=== PATIENT | female | born 1965 | race Hispanic/Latino ===

== ENCOUNTER 2020-09-13 13:06 | Inpatient (IN) | payer OTHER ==
--- OUTSIDE RECORDS SUMMARY | 2020-09-13 15:40 | XMS REPORT | Continuity of Care Document ---
:1965 Author Organization [facility] t Address [address] [place] [address] Care Team Providers Name Role Phone NO Primary Care Physician Unavailable Teresa SERRANO Attending Clinician Unavailable Korina Attending Clinician Problems Condition Condition Condition Status Onset Resolution Last Treating Co mments Source Name Details Category Date Date Treatment Clinician Date R22.1 - Diagnosis Active 2017-08-14 Me moria LOCALIZED 2-09 15:38:00 l SWELLING, R22.1 - 00:01: Herm maxwell MASS AND L LOCALIZED 00 SWELLING, MASS AND L Active 08/03/2017 [facility] [place] Z12.31 - Diagnosis Active 2015-062016-08-13 M emoria ENCNTR 2-14 15:43:00 l SCREEN Z12.31 - 00:01: Lizandro n MAMMOGRAM ENCNTR 00 FOR MA SCREEN MAMMOGRAM FOR MA Active 06/07/2016 [facility] [place] Pneumonia Problem Active [facility] due to [facility] - severe Patient acute s respirator Medica l y syndrome Center coronaviru s 2 (SARS-CoV- 2) Hypoxia Problem Active [facility] - Patient [facility] Generalize Problem 2017-11-20 M emoria d 12:45:51 l abdominal [place] pain Generalize d abdominal pain 8 MH [facility] [place] Tinea Problem 2017-11-20 Memor ia imbricata 12:45:51 l Tinea [place] imbricata 11/20/2017 MH [facility] [place] Unspecifie Problem 2017-11-20 M emoria d ovarian 12:45:51 l cyst, left Lizandro n side Unspecifie d ovarian cyst, left side 8 [facility] [place] Prediabete Problem 2017-11-20 M emoria s 12:45:51 l Ronnie Prediabete s 11/20/2017 MH [facility] [place] History of Past Illness Condition Condition Condition Status Onset Resolution Last Treating Co mments Source Name Details Category Date Date Treatment Clinician Date Right Problem 2017-2017-11-20 2017-11-20 M emoria lower 2-24 12:45:51 12:45:51 l quadrant Right 05:42: Ronnie pain lower 27 quadrant pain 08/18/2017 11/20/2017 [facility] [place] Allergies, Adverse Reactions, Alerts This patient has no known allergies or adverse reactions. Social History Social Habit Start Date Stop Date Quantity Comments Source Social History 2017-08-15 2017-08-15 [facility] 05:59:00 05:59:00 Sex Assigned At 1965 [address] [facility] 00:00:00 00:00:00 Patients [facility] Medications This patient has no known medications. Vital Signs Vital Name Observation Time Observation Value Comments Source Oxygen saturation by 2020-09-13 14:10:00 100 /min [facility] - Pulse oximetry Patients [facility] Oxygen saturation by 2020-09-13 12:40:00 100 /min [facility] - Pulse oximetry Patients [facility] Oxygen saturation by 2020-09-13 11:31:00 100 /min [facility] - Pulse oximetry Patients [facility] Oxygen saturation by 2020-09-13 09:52:00 100 /min [facility] - Pulse oximetry Patients [facility] Oxygen saturation by 2020-09-13 08:45:00 99 /min [facility] - Pulse oximetry Patients [facility] Oxygen saturation by 2020-09-13 08:17:00 98 /min [facility] - Pulse oximetry Patients [facility] Oxygen saturation by 2020-09-13 07:58:00 84 /min [facility] - Pulse oximetry Patients [facility] Procedures This patient has no known procedures. Encounters Start End Encounter Admission Attending Care Care Encounter Source Date/Time Date/Time Type Type Clinicians Facility Department ID 2020-09-13 2020-09-13 Departed 1 SWEET, [facility] [id number] [facility] 08:17:00 14:31:00 Emergency [facility] Patients 95 Lakisha es - Room Med Center [facility] 2017-08-14 2017-08-14 Outpatient Korina [facility] [id number] 15:30:00 23:59:00 Yadira 05 2014-10-02 2014-10-02 Outpatient Korina [facility] [id number] 14:23:00 23:59:00 Yadira Results Test Description Test Time Test Comments Results Result Comments Source Prothrombin time (PT) in platelet poor plasma by coagu lation 2020-09-13 09:00:00 assay Test Item Value Reference Range Interpretation Comme nts Prothrombin Time (test code = 5902-2) 13.3 11.9-14.5 [facility] by Coagulation [id number] 09:00:00 Test Item Value Reference Range Interpretation Comments Prothromb Time International Ratio 0.96 (test code = 6301-6) [facility]Act[facility] partial thromboplastin time (aPTT) in platelet poor plasma by coagulation [id number] 09:00:00 Test Item Value Reference Range Interpretation Comments Activated Partial Thromboplast Time 31.5 23.8-35.5 (test code = 49070-3) [facility] sodium measurement (moles/volume)2020-09-13 09:00:00 Test Item Value Reference Range Interpretation Comments Sodium Level (test code = 2951-2) 138 136-145 [facility] plasma potassium measurement (moles/volume)2020-09-13 09:00:00 Test Item Value Reference Range Interpretation Comments Potassium Level (test code = 2823-3) 3.6 3.5-5.1 [facility] plasma chloride measurement (moles/volume)2020-09-13 09:00:00 Test Item Value Reference Range Interpretation Comments Chloride Level (test code = 2075-0) 101 98-107 [facility] plasma carbon dioxide, total measurement (moles/volume)2020-09-13 09:00:00 Test Item Value Reference Range Interpretation Comments Carbon Dioxide Level (test code = 8-9) [facility] plasma anion [id number] 09:00:00 Test Item Value Reference Range Interpretation Comments Anion Gap (test code = 39011-0) 14.6 8-16 [facility] plasma urea nitrogen measurement (mass/volume)2020-09-13 09:00:00 Test Item Value Reference Range Interpretation Comments Blood Urea Nitrogen (test code = 01-17 3094-0) [facility] plasma creatinine measurement (mass/volume)2020-09-13 09:00:00 Test Item Value Reference Range Interpretation Comments Creatinine (test code = 2160-0) 0.68 0.57-1.11 [facility] plasma urea nitrogen/creatinine mass [id number] 09:00:00 Test Item Value Reference Range Interpretation Comments BUN/Creatinine Ratio (test code = 12-17 3097-3) [facility]Estimated glomerular filtration rate (GFR) [id number] 09:00:00 Test Item Value Reference Range Interpretation Comments Estimat Glomerular > 60 See_Comment [Automat ed message] The Filtration Rate (test system which generated code = 676064021) this resul t transmitted reference range : 60-. The reference r devin was not used to int erpret this result as normal/abnormal . [facility] HospitalGlucose [id number] 09:00:00 Test Item Value Reference Range Interpretation Comments Glucose Level (test code = LOX1718) 116 74-118 [facility] plasma calcium measurement (mass/volume)2020-09-13 09:00:00 Test Item Value Reference Range Interpretation Comments Calcium Level (test code = 32739-8) 8.2 8.4-10.2 [facility] plasma magnesium measurement (mass/volume)2020-09-13 09:00:00 Test Item Value Reference Range Interpretation Comments Magnesium Level (test code = 87640-4) 2.3 1.3-2.1 [facility] plasma total bilirubin measurement (mass/volume)2020-09-13 09:00:00 Test Item Value Reference Range Interpretation Comments Total Bilirubin (test code = 1975-2) 0.5 0.2-1.2 [facility] HospitalFluoroscopic procedure less than one hour [id number] 09:00:00 Test Item Value Reference Range Interpretation Comments Aspartate Amino Transf (AST/SGOT) (test 108 5-34 code = Aspartate Amino Transf (AST/SGOT)) [facility] or plasma alanine aminotransferase measurement (enzymatic activity/volume)2020-09-13 09:00:00 Test Item Value Reference Range Interpretation Comments Alanine Aminotransferase (ALT/SGPT) 66 0-55 (test code = 1742-6) [facility] plasma protein measurement (mass/volume)2020-09-13 09:00:00 Test Item Value Reference Range Interpretation Comments Total Protein (test code = 2885-2) 7.9 6.5-8.1 [facility] plasma albumin measurement (mass/volume)2020-09-13 09:00:00 Test Item Value Reference Range Interpretation Comments Albumin (test code = 1751-7) 3.4 3.5-5.0 [facility]Plasma globulin measurement (mass/volume) 2020-09-13 09:00:00 Test Item Value Reference Range Interpretation Comments Globulin (test code = 32330-4) 4.5 2.3-3.5 [facility] plasma albumin/globulin mass [id number] 09:00:00 Test Item Value Reference Range Interpretation Comments Albumin/Globulin Ratio (test code = 0.8 0.8-2.0 1759-0) [facility] plasma alkaline phosphatase measurement (enzymatic activity/volume)2020-09-13 09:00:00 Test Item Value Reference Range Interpretation Comments Alkaline Phosphatase (test code = 79 40-150 6768-6) [facility] or plasma creatine kinase measurement (enzymatic activity/volume)2020-09-13 09:00:00 Test Item Value Reference Range Interpretation Comments Creatine Kinase (test code = 2157-6) 027 19-492 [facility]er[facility] or plasma creatine kinase MB measurement (mass/volume)2020-09-13 09:00:00 Test Item Value Reference Range Interpretation Comments Creatine Kinase MB (test code = 2.60 0-5.0 25687-1) [facility] HospitalTroponin I measurement by highly sensitive enzyme [id number] 09:00:00 Test Item Value Reference Range Interpretation Comments Troponin I (test code = 56759-6) 0.020 0-0.300 [facility] HospitalCHEST SINGLE (PORTABLE)2020-09-13 08:47:00[facility] 1965 Sex: [place] [address] Patient Name: MERE ROCK MR #: [id number] : 1965 Age/Sex: 55/F Req #: [id number] Adm Physician: Ordered by: CHARLEEN SERRANO MD Report #: [id number] Location: Room/Bed: Procedure: 3609-3251 DX/CHEST SINGLE (PORTABLE) Exam Date: 09/13/20 Exam Time: 0828 REPORT STATUS: Signed EXAMINATION: CHEST SINGLE (PORTABLE) INDICATION: Viral pneumonia, shortness of breath COMPARISON: None FINDINGS: LINES/TUBES:None LUNGS:Low lung volumes. Multifocal left greater than right patchy opacities. PLEURA:No pleural effusion or pneumothorax. MEDIASTINUM:The cardiomediastinal silhouette appears normal in size and shape. BONES/SOFT TISSUES:No acute osseous injury. ABDOMEN:No free air under the diaphragm. IMPRESSION: Low lung volumes and left greater than right bilateral patchy opacities consistent with provided history of viral pneumonia. Signed by: Cheryl Almendarez MD on 09/13/2020 8:48 AM Dictated By: CHERYL ALMENDAREZ MD 7 COPY TO: CHARLEEN SERRANO MD Automated blood segmented neutrophil count as percentage of total leukocytes 2020-09-13 08:07:00 Test Item Value Reference Range Interpretation Comments Neutrophils (%) (Auto) (test code = 78.1 38.7-80.0 18298-0) [facility] HospitalAutomated blood lymphocyte count as percentage ot total [id number] 08:07:00 Test Item Value Reference Range Interpretation Comments Lymphocytes (%) (Auto) (test code = 13.0 18.0-39.1 736-9) [facility] HospitalAutomated blood monocyte count as percentage of total gifndaiynn4554-28-85 08:07:00 Test Item Value Reference Range Interpretation Comments Monocytes (%) (Auto) (test code = 7.7 4.4-11.3 5905-5) [facility] HospitalAutomated blood eosinophil count as percentage of total xruaoxaqah8943-01-32 08:07:00 Test Item Value Reference Range Interpretation Comments Eosinophils (%) (Auto) (test code = 0.2 0.0-6.0 713-8) [facility] HospitalAutomated blood basophil count as percentage of total xoggqohoeu9910-71-70 08:07:00 Test Item Value Reference Range Interpretation Comments Basophils (%) (Auto) (test code = 0.3 0.0-1.0 706-2) [facility] HospitalFluoroscopic procedure less than one hour [id number] 08:07:00 Test Item Value Reference Range Interpretation Comments IM GRANULOCYTES % (test code = IM 0.7 0.0-1.0 GRANULOCYTES %) [facility] HospitalAutomated blood neutrophil count 2020-09-13 08:07:00 Test Item Value Reference Range Interpretation Comments Neutrophils # (Auto) (test code = 4.7 2.1-6.9 751-8) [facility] HospitalBlood lymphocytes count (number/volume) 2020-09-13 08:07:00 Test Item Value Reference Range Interpretation Comments Lymphocytes # (Auto) (test code = 0.8 1.0-3.2 78447-9) [facility] HospitalBlood monocytes automated count (number/volume)2020-09-13 08:07:00 Test Item Value Reference Range Interpretation Comments Monocytes # (Auto) (test code = 742-7) 0.5 0.2-0.8 [facility] HospitalAutomated blood eosinophil count 2020-09-13 08:07:00 Test Item Value Reference Range Interpretation Comments Eosinophils # (Auto) (test code = 0.0 0.0-0.4 711-2) [facility] HospitalAutomated blood basophil count (count/volume)2020-09-13 08:07:00 Test Item Value Reference Range Interpretation Comments Basophils # (Auto) (test code = 704-7) 0.0 0.0-0.1 [facility] HospitalFluoroscopic procedure less than one hour [id number] 08:07:00 Test Item Value Reference Range Interpretation Comments Absolute Immature Granulocyte (auto 0.04 0-0.1 (test code = Absolute Immature Granulocyte (auto) [facility] HospitalBlood platelets count by estimate (number/volume)2020-09-13 08:07:00 Test Item Value Reference Range Interpretation Comments Platelet Estimate (test code = ADEQUATE 60330-4) [facility] HospitalPlatelet [id number] 08:07:00 Test Item Value Reference Range Interpretation Comments Platelet Morphology Comment (test code NORMAL = 39576-1) [facility] HospitalAutomated blood hematocrit (volume fraction)2020-09-13 08:07:00 Test Item Value Reference Range Interpretation Comments Hematocrit (test code = 4544-3) 40.8 34.2-44.1 [facility] HospitalBNP [id number] 08:07:00 Test Item Value Reference Range Interpretation Comments B-Type Natriuretic Peptide (test code < 10.0 0-100 = 56422-7) [facility] HospitalAutomated erythrocyte mean corpuscular [id number] 08:07:00 Test Item Value Reference Range Interpretation Comments Mean Corpuscular Volume (test code = 86.8 81-99 787-2) [facility] HospitalFluoroscopic procedure less than one hour fyglqepo3234-56-15 08:07:00 Test Item Value Reference Range Interpretation Comments Coronavirus (PCR) (test code = DETECTED NOTDETECTED Coronavirus (PCR)) [facility] HospitalBlood leukocytes automated count (number/volume)2020-09-13 08:07:00 Test Item Value Reference Range Interpretation Comments White Blood Count (test code = 6690-2) 6.00 4.8-10.8 [facility] erythrocytes automated count (number/volume)2020-09-13 08:07:00 Test Item Value Reference Range Interpretation Comments Red Blood Count (test code = 789-8) 4.70 3.6-5.1 [facility] HospitalBlood hemoglobin measurement (moles/volume)2020-09-13 08:07:00 Test Item Value Reference Range Interpretation Comments Hemoglobin (test code = 36720-6) 13.9 12.0-16.0 [facility] HospitalAutomated erythrocyte mean corpuscular hemoglobin (mass per erythrocyte)2020-09-13 08:07:00 Test Item Value Reference Range Interpretation Comments Mean Corpuscular Hemoglobin (test code 29.6 28-32 = 785-6) [facility] HospitalAutomated erythrocyte mean corpuscular hemoglobin concentration measurement (mass/volume)2020-09-13 08:07:00 Test Item Value Reference Range Interpretation Comments Mean Corpuscular Hemoglobin Concent 34.1 31-35 (test code = 786-4) [facility] HospitalRDW YasCx-[id number] 08:07:00 Test Item Value Reference Range Interpretation Comments Red Cell Distribution Width (test code 13.3 11.7-14.4 = 90673-6) [facility] HospitalAutomated blood platelet count (count/volume)2020-09-13 08:07:00 Test Item Value Reference Range Interpretation Comments Platelet Count (test code = 777-3) 154 140-360 [facility]
[2020-09-13 15:54] VITALS: BMI 40.4
[2020-09-13] MEDS ORDERED: IPRATROPIUM BROM 0.5MG/2.5ML NEB PRN (16:07)
[2020-09-13] MEDS ORDERED: ONDANSETRON 4 MG/2 ML VIAL IV PRN (16:07)
[2020-09-13] MEDS ORDERED: ALBUTEROL 2.5 MG/3 ML NEB SOL NEB PRN (16:07)
[2020-09-13] MEDS: AZITHROMYCIN IV 500 MG in NA CHLORIDE 0.9% 250 ML IVPB SCH (20:28)
[2020-09-13] MEDS: APIXABAN 5 MG TABLET PO SCH (20:29)
[2020-09-13] MEDS: FAMOTIDINE 20 MG/2 ML VIAL IV SCH (20:29)
[2020-09-13] MEDS: METHYLPREDNISOLONE 40 MG INJ IV SCH (20:30)
[2020-09-13] MEDS: CEFTRIAXONE/SWI 1gm 1 GM/10 ML SYR IVP SCH (20:30)
[2020-09-14 04:25] LABS: Absolute Lymphocytes (CBC) 0.5 K/uL (0.7-4.9); Basophils % 0.4 % (0-1.3); Hematocrit 38.4 % (36.0-45.0); Lymphocytes % 13.2 % (15.3-44.8); MPV 10.6 fL (7.6-11.3); RBC Red Blood Cell Count 4.39 M/uL (3.86-4.86)
[2020-09-14 04:38] LABS: ALT/SGPT 63 U/L (12-78); AST/SGOT 78 U/L (15-37); Albumin 2.7 g/dL (3.4-5.0); Alkaline Phosphatase 73 U/L (45-117); BUN Blood Urea Nitrogen 11 mg/dL (7-18); Bicarbonate 27 mmol/L (21-32); Bilirubin Total 0.4 mg/dL (0.2-1.0); Ferritin 752.4 ng/mL (8-388); Glucose Level 147 mg/dL (74-106); HDL Cholesterol 34 mg/dL (40-60); LDL Cholesterol, Calculated 30 (<130); Magnesium 2.7 mg/dL (1.8-2.4); NT PRO-BNP 51 pg/mL (<125); Phosphorus 3.1 mg/dL (2.5-4.9); Potassium 4.1 mmol/L (3.5-5.1); Sodium Level 141 mmol/L (136-145)
[2020-09-14] MEDS: AZITHROMYCIN IV 500 MG in NA CHLORIDE 0.9% 250 ML IVPB SCH (07:41)
[2020-09-14] MEDS: FAMOTIDINE 20 MG/2 ML VIAL IV SCH ×2 (07:41→21:35)
[2020-09-14] MEDS: APIXABAN 5 MG TABLET PO SCH ×2 (07:42→21:36)
[2020-09-14] MEDS: METHYLPREDNISOLONE 40 MG INJ IV SCH (07:42)
[2020-09-14] MEDS: CEFTRIAXONE/SWI 1gm 1 GM/10 ML SYR IVP SCH ×2 (07:43→21:34)
[2020-09-14] MEDS ORDERED: ENOXAPARIN 40 MG/0.4 ML SQ SCH (09:00)
--- NOTE | 2020-09-14 10:03 | P.HP ---
Certification for Inpatient Patient admitted to: Inpatient With expected LOS: >2 Midnights Patient will require the following post-hospital care: None Practitioner: I am a practitioner with admitting privileges, knowledge of patient current condition, hospital course, and medical plan of care. Services: Services provided to patient in accordance with Admission requirements found in Title 42 Section 412.3 of the Code of Federal Regulations Patient History Date of Service: 09/13/20 Reason for admission: COVID-19 pneumonia History of Present Illness: Patient is a 55-year-old female who came to the hospital from [place], [place]. They did not have any COVID beds so arrangements were made to transfer patient to our facility. Patient was hypoxic requiring 4 L of oxygen. Patient has multiple comorbidities including morbid obesity and dyslipidemia. She has been told she is prediabetic and she is has some blood pressure issues as well. At this time she will be admitted to our hospital for further evaluation. I did talk to her about the use of Remdesivir as well as plasma. She is will willing to except both. Will go ahead and get orders started-await for approval by the committee at [facility] that approves these medications. Allergies No Known Allergies Allergy (Unverified 09/13/20 15:53) Home Medications: Ibuprofen 1 tab PO TID PRN 09/13/20 - Past Medical/Surgical History Has patient received pneumonia vaccine in the past: No Diabetic: No -: hyperlipidemia -: left foot surgery - pins -: cholecystectomy -: section x 3 -: left shoulder rotator cuff surgery - Family History Father Medical History: Cancer Notes: liver cirrhosis Mother Medical History: Diabetes - Social History Smoking Status: Never smoker Alcohol use: No CD- Drugs: No Caffeine use: Yes Place of Residence: Home Review of Systems 10-point ROS is otherwise unremarkable Physical Examination - Vital Signs Temperature: 98.1 F Blood Pressure: 111/66 Pulse: 78 Respirations: 22 Pulse Ox (%): 90 - Physical Exam General: Alert, In no apparent distress, Oriented x3 HEENT: Atraumatic, PERRLA, Mucous membr. moist/pink, EOMI, Sclerae nonicteric Neck: Supple, 2+ carotid pulse no bruit, No LAD, Without JVD or thyroid abnormality Respiratory: Diminished, Rhonchi/gurgles Cardiovascular: Regular rate/rhythm, Normal S1 S2 Gastrointestinal: Normal bowel sounds, No tenderness Musculoskeletal: No tenderness Integumentary: No rashes Neurological: Normal gait, Normal speech, Normal strength at 5/5 x4 extr, Normal tone, Normal affect Lymphatics: No axilla or inguinal lymphadenopathy - Studies Laboratory Data (last 24 hrs) 09/14/20 03:27: Sodium 141, Potassium 4.1, BUN 11, Creatinine 0.44 L, Glucose 147 H, Phosphorus 3.1, Magnesium 2.7 H, Total Bilirubin 0.4, AST 78 H, ALT 63, Alkaline Phosphatase 73, Triglycerides 70, Cholesterol 78, HDL Cholesterol 34 L, Cholesterol/HDL Ratio 2.29 09/14/20 03:27: WBC 3.70 L, Hgb 12.9, Hct 38.4, Plt Count 161 Assessment & Plan - Problems (Diagnosis) (1) Pneumonia due to COVID-19 virus Current Visit: Yes Status: Acute - Plan 1. Continue with IV steroids 2. Remdesivir & plasma 3. Repeat chest x-ray is symptoms are progressively worsening 4. O2 per protocol 5. Pulmonary consultation 6. Continue with albuterol inhaler therapy; zinc and vitamin-C 7. O2 per protocol 8. Monitor LFTs 9. Repeat labs including ferritin and CRP 10. GI and DVT prophylaxis Discharge Plan: Home Plan to discharge in: Greater than 2 days - Advance Directives Does patient have a Living Will: No Does patient have a Durable POA for Healthcare: No - Code Status/Comfort Care Code Status Assessed: Yes Code Status: Full Code Critical Care: No Time Spent Managing PTS Care (In Minutes): 45
--- NOTE | 2020-09-14 12:51 | P.CNS ---
Date of Consult: 09/14/20 Reason for Consult: Respiratory failure from walls virus Chief Complaint: COVID-19 pneumonia History of Present Illness: Patient is 55 years of age was in os [facility] and diagnosed with walls virus transferred here she is doing better currently nasal cannula oxygen still complaining of shortness of breath Labs reviewed Allergies No Known Allergies Allergy (Unverified 09/13/20 15:53) Home Medications: Ibuprofen 1 tab PO TID PRN 09/13/20 - Past Medical/Surgical History Diabetic: No -: hyperlipidemia -: left foot surgery - pins -: cholecystectomy -: section x 3 -: left shoulder rotator cuff surgery - Family History Father Medical History: Cancer Notes: liver cirrhosis Mother Medical History: Diabetes - Social History Alcohol use: No CD- Drugs: No Caffeine use: Yes Place of Residence: Home Review of Systems General: Weakness Respiratory: Shortness of Breath Physical Examination Temp Pulse Resp BP Pulse Ox 98.1 F 78 22 H 111/66 90 L 09/14/20 10:03 09/14/20 10:03 09/14/20 10:03 09/14/20 10:03 09/14/20 10:03 General: Other (Deferred due to walls virus) Laboratory Data (last 24 hrs) 09/14/20 03:27: Sodium 141, Potassium 4.1, BUN 11, Creatinine 0.44 L, Glucose 147 H, Phosphorus 3.1, Magnesium 2.7 H, Total Bilirubin 0.4, AST 78 H, ALT 63, Alkaline Phosphatase 73, Triglycerides 70, Cholesterol 78, HDL Cholesterol 34 L, Cholesterol/HDL Ratio 2.29 09/14/20 03:27: WBC 3.70 L, Hgb 12.9, Hct 38.4, Plt Count 161 - Problems (1) Pneumonia due to COVID-19 virus Current Visit: Yes Status: Acute Plan: Patient is 55 years of age admitted with pneumonia due to walls virus she is currently requiring 5 6 L of oxygen to maintain a sat around 90 Dc Zithromax continue with IV Rocephin ordered a chest x-ray blood pressure stable continue to monitor
[2020-09-14] MEDS ORDERED: Remdesivir 200 MG in NA CHLORIDE 0.9% 250 ML IV ONE (14:00)
[2020-09-14] MEDS ORDERED: NA CHLORIDE 0.9% 250 ML ONE (14:58)
[2020-09-14] MEDS: METHYLPREDNISOLONE 125 MG INJ IV SCH (21:34)
[2020-09-15 04:24] LABS: Albumin 2.8 g/dL (3.4-5.0); Bilirubin Direct 0.1 mg/dL (0-0.2); Bilirubin Total 0.3 mg/dL (0.2-1.0)
[2020-09-15] MEDS: CEFTRIAXONE/SWI 1gm 1 GM/10 ML SYR IVP SCH (07:38)
[2020-09-15] MEDS: FAMOTIDINE 20 MG/2 ML VIAL IV SCH ×2 (07:39→21:02)
[2020-09-15] MEDS: ACETAMINOPHEN 500 MG TAB PO PRN (07:39)
[2020-09-15] MEDS: METHYLPREDNISOLONE 125 MG INJ IV SCH ×2 (07:39→21:02)
[2020-09-15] MEDS: APIXABAN 5 MG TABLET PO SCH ×2 (07:40→21:02)
--- NOTE | 2020-09-15 08:28 | RAD REPORT ---
EXAM DESCRIPTION: Jeanine Single View09/15/2020 5:29 am CLINICAL HISTORY: Cough COMPARISON: none FINDINGS: Moderate to marked bilateral pulmonary opacities. Heart is normal size IMPRESSION: Moderate to marked bilateral pulmonary opacities probably pneumonia
[2020-09-15] MEDS: Remdesivir 100 MG in NA CHLORIDE 0.9% 250 ML IV SCH (09:23)
--- NOTE | 2020-09-15 10:10 | P.PN ---
Subjective Date of Service: 09/14/20 Oxygen requirements has slowly worsened. Patient states she feels better however. Will need to continue with current treatment. Review of Systems 10-point ROS is otherwise unremarkable Physical Examination - Vital Signs Temperature: 97 F Blood Pressure: 121/72 Pulse: 59 Respirations: 24 Pulse Ox (%): 91 - Physical Exam General: Alert, In no apparent distress, Oriented x3 HEENT: Atraumatic, PERRLA, EOMI Neck: Supple, JVD not distended Respiratory: Diminished Cardiovascular: Regular rate/rhythm, Normal S1 S2 Gastrointestinal: Normal bowel sounds, No tenderness Musculoskeletal: No tenderness Integumentary: No rashes Neurological: Normal speech, Normal tone, Normal affect Lymphatics: No axilla or inguinal lymphadenopathy - Studies Laboratory Data (last 24 hrs) 09/15/20 03:35: Total Bilirubin 0.3, AST 66 H, ALT 66, Alkaline Phosphatase 71 Medications List Reviewed: Yes Assessment & Plan - Problems (Diagnosis) (1) Pneumonia due to COVID-19 virus Current Visit: Yes Status: Acute - Plan 1. Continue with IV steroids 2. Remdesivir & plasma; plasma given and Remdesivir is day 3. 3. Repeat chest x-ray in the morning 4. O2 per protocol 5. Pulmonary consultation appreciated 6. Continue with albuterol inhaler therapy; supportive care 7. Monitor LFTs 8. Repeat labs including ferritin and CRP 9. GI and DVT prophylaxis Discharge Plan: Home Plan to discharge in: Greater than 2 days - Advance Directives Does patient have a Living Will: No Does patient have a Durable POA for Healthcare: No - Code Status/Comfort Care Code Status: Full Code Critical Care: No Time Spent Managing PTS Care (In Minutes): 35
--- NOTE | 2020-09-15 10:11 | P.PN ---
Date of Service: 09/15/20 Subjective Oxygen requirements has slowly worsened. Patient states she feels better however. Will need to continue with current treatment. Review of Systems 10-point ROS is otherwise unremarkable Physical Examination - Vital Signs reviewed - Physical Exam General: Alert, In no apparent distress, Oriented x3 Respiratory: Diminished Cardiovascular: Regular rate/rhythm, Normal S1 S2 Gastrointestinal: Normal bowel sounds, No tenderness Musculoskeletal: No tenderness Neurological: Normal speech, Normal tone, Normal affect Assessment & Plan - Problems (Diagnosis) (1) Pneumonia due to COVID-19 virus Current Visit: Yes Status: Acute - Plan 1. Continue with IV steroids 2. Remdesivir & plasma; plasma given and Remdesivir is day 3. 3. Repeat chest x-ray in the morning 4. O2 per protocol 5. Pulmonary consultation appreciated 6. Continue with albuterol inhaler therapy; supportive care 7. Monitor LFTs 8. Repeat labs including ferritin and CRP 9. GI and DVT prophylaxis Discharge Plan: Home Plan to discharge in: Greater than 2 days
--- NOTE | 2020-09-15 12:46 | P.PN ---
Subjective Date of Service: 09/15/20 Chief Complaint: COVID-19 pneumonia Subjective: Improving (Patient is improving feeling better still requiring high flow nasal cannula oxygen) Review of Systems General: Weakness Respiratory: Shortness of Breath Physical Examination - Vital Signs Temperature: 96.9 F Blood Pressure: 110/55 Pulse: 59 Respirations: 28 Pulse Ox (%): 90 - Studies Laboratory Data (last 24 hrs) 09/15/20 03:35: Total Bilirubin 0.3, AST 66 H, ALT 66, Alkaline Phosphatase 71 Medications List Reviewed: Yes Assessment & Plan - Problems (Diagnosis) (1) Pneumonia due to COVID-19 virus Current Visit: Yes Status: Acute Plan: Doing better continue to monitor titrate O2 down to a sat of 90% patient is on high flow nasal cannula oxygen continue to wean she is feeling better blood pressure is stable labs reviewed DC antibiotics no evidence of sepsis
[2020-09-15] MEDS: IVERMECTIN 3 MG TABLET PO SCH (13:59)
[2020-09-16 04:22] LABS: Absolute Lymphocytes (CBC) 0.7 K/uL (0.7-4.9); Basophils % 0.2 % (0-1.3); Hematocrit 37.8 % (36.0-45.0); MPV 10.2 fL (7.6-11.3); RBC Red Blood Cell Count 4.32 M/uL (3.86-4.86)
[2020-09-16 05:33] LABS: ALT/SGPT 74 U/L (12-78); AST/SGOT 55 U/L (15-37); Albumin 2.8 g/dL (3.4-5.0); Alkaline Phosphatase 74 U/L (45-117); BUN Blood Urea Nitrogen 16 mg/dL (7-18); Bicarbonate 29 mmol/L (21-32); Bilirubin Direct 0.1 mg/dL (0-0.2); Bilirubin Total 0.3 mg/dL (0.2-1.0); Ferritin 474.1 ng/mL (8-388); Glucose Level 139 mg/dL (74-106); Magnesium 2.9 mg/dL (1.8-2.4); NT PRO-BNP 232 pg/mL (<125); Potassium 4.1 mmol/L (3.5-5.1); Protein, Total 6.9 g/dL (6.4-8.2); Sodium Level 144 mmol/L (136-145)
[2020-09-16 07:03] LABS: Blood Morphology Comment NOT SEEN (NOT SEEN); Platelet Estimate ADEQ
[2020-09-16] MEDS: APIXABAN 5 MG TABLET PO SCH ×2 (07:13→20:31)
[2020-09-16] MEDS: METHYLPREDNISOLONE 125 MG INJ IV SCH ×2 (07:13→20:30)
[2020-09-16] MEDS: FAMOTIDINE 20 MG/2 ML VIAL IV SCH ×2 (07:13→20:31)
[2020-09-16] MEDS: Remdesivir 100 MG in NA CHLORIDE 0.9% 250 ML IV SCH (09:47)
--- NOTE | 2020-09-16 13:17 | P.PN ---
Subjective Date of Service: 09/16/20 Chief Complaint: COVID-19 pneumonia Subjective: Improving (Patient feeling better although she has dyspnea on mild exertion including desat) Review of Systems General: Weakness Respiratory: Shortness of Breath Physical Examination - Vital Signs Temperature: 97 F Blood Pressure: 116/58 Pulse: 55 Respirations: 18 Pulse Ox (%): 91 - Studies Laboratory Data (last 24 hrs) 09/16/20 03:19: WBC 11.60 H D, Hgb 12.4, Hct 37.8, Plt Count 218 D 09/16/20 03:19: Sodium 144, Potassium 4.1, BUN 16, Creatinine 0.50 L, Glucose 139 H, Magnesium 2.9 H, Total Bilirubin 0.3, AST 55 H, ALT 74, Alkaline Phosphatase 74 Medications List Reviewed: Yes Assessment & Plan - Problems (Diagnosis) (1) Pneumonia due to COVID-19 virus Current Visit: Yes Status: Acute Plan: Patient is feeling better oxygenation stable at rest she has mild desaturation with minimal exertion continue titrate O2 down labs review vital signs stable Discharge Plan: Home Plan to discharge in: 48 Hours
[2020-09-16] MEDS: FLUCONAZOLE 200mg IVPB 200 MG/100 ML BAG IV SCH (18:25)
[2020-09-16] MEDS: ACETAMINOPHEN 500 MG TAB PO PRN (20:32)
[2020-09-16] MEDS: NYSTATIN 500,000 UNIT/5 ML UDC PO SCH (20:32)
[2020-09-17 04:14] LABS: Absolute Lymphocytes (CBC) 0.6 K/uL (0.7-4.9); Basophils % 0.2 % (0-1.3); Hematocrit 39.5 % (36.0-45.0); Lymphocytes % 5.5 % (15.3-44.8); MPV 9.8 fL (7.6-11.3); RBC Red Blood Cell Count 4.51 M/uL (3.86-4.86)
--- NOTE | 2020-09-17 05:34 | P.PN ---
Date of Service: 09/16/20 Subjective Patient continues to slowly improve. She was having some odynophagia and pain in the back of her throat. We did start some medication for thrush. Otherwise she has 2 more days of Remdesivir. Hopefully, we can discharge in Sunday a.m. after last dose of antiviral therapy completed Review of Systems 10-point ROS is otherwise unremarkable Physical Examination - Vital Signs reviewed - Physical Exam General: Alert, In no apparent distress, Oriented x3 Respiratory: Diminished Cardiovascular: Regular rate/rhythm, Normal S1 S2 Gastrointestinal: Normal bowel sounds, No tenderness Musculoskeletal: No tenderness Neurological: Normal speech, Normal tone, Normal affect Assessment & Plan - Problems (Diagnosis) (1) Pneumonia due to COVID-19 virus Current Visit: Yes Status: Acute (2) Thrush Current Visit: Yes Status: Acute - Plan 1. Continue with IV steroids 2. Remdesivir & plasma; plasma given and Remdesivir is day 3-last dose is Sunday morning. 3. Repeat chest x-ray as needed 4. O2 per protocol 5. Pulmonary consultation appreciated 6. Continue with albuterol inhaler therapy; supportive care 7. Monitor LFTs; Repeat labs including ferritin and CRP 8. Start Diflucan and nystatin 9. GI and DVT prophylaxis Discharge Plan: Home Plan to discharge in: Greater than 2 days
[2020-09-17 06:21] LABS: ALT/SGPT 97 U/L (12-78); AST/SGOT 70 U/L (15-37); Albumin 2.8 g/dL (3.4-5.0); Alkaline Phosphatase 73 U/L (45-117); BUN Blood Urea Nitrogen 17 mg/dL (7-18); Bicarbonate 28 mmol/L (21-32); Bilirubin Direct 0.2 mg/dL (0-0.2); Bilirubin Total 0.5 mg/dL (0.2-1.0); C-Reactive Protein 7.68 mg/L (<3.00); Ferritin 481.6 ng/mL (8-388); Glucose Level 142 mg/dL (74-106); Magnesium 2.8 mg/dL (1.8-2.4); Potassium 4.3 mmol/L (3.5-5.1); Protein, Total 6.8 g/dL (6.4-8.2); Sodium Level 143 mmol/L (136-145)
[2020-09-17] MEDS: NYSTATIN 500,000 UNIT/5 ML UDC PO SCH ×4 (07:16→20:17)
[2020-09-17] MEDS: APIXABAN 5 MG TABLET PO SCH ×2 (07:17→20:17)
[2020-09-17] MEDS: FAMOTIDINE 20 MG/2 ML VIAL IV SCH ×2 (07:17→20:17)
[2020-09-17] MEDS: METHYLPREDNISOLONE 125 MG INJ IV SCH ×2 (07:17→20:18)
[2020-09-17] MEDS: Remdesivir 100 MG in NA CHLORIDE 0.9% 250 ML IV SCH (09:16)
--- NOTE | 2020-09-17 09:24 | P.PN ---
Date of Service: 09/17/20 Subjective Patient continues to improve significantly. to complete dose of remdesivir in am. we will arrange supplemental oxygen at home prior to discharge. Review of Systems 10-point ROS is otherwise unremarkable Physical Examination - Vital Signs reviewed - Physical Exam General: Alert, In no apparent distress, Oriented x3 Respiratory: Diminished Cardiovascular: Regular rate/rhythm, Normal S1 S2 Gastrointestinal: Normal bowel sounds, No tenderness Musculoskeletal: No tenderness Neurological: Normal speech, Normal tone, Normal affect Assessment & Plan - Problems (Diagnosis) (1) Pneumonia due to COVID-19 virus Current Visit: Yes Status: Acute (2) Thrush Current Visit: Yes Status: Acute - Plan 1. Continue with IV steroid doses. 2. Remdesivir & plasma; plasma given and Remdesivir is day 4-last dose is Sunday morning (i.e tomorrow). 3. Repeat chest x-ray as needed 4. O2 per protocol 5. Pulmonary consultation appreciated 6. Continue with albuterol inhaler therapy and supportive care 7. continue Diflucan and nystatin 8. GI and DVT prophylaxis Discharge Plan: Home Plan to discharge in: Greater than 2 days
--- NOTE | 2020-09-17 12:14 | P.PN ---
Subjective Date of Service: 09/17/20 Chief Complaint: COVID-19 pneumonia Subjective: Improving (Patient is doing better still has some dyspnea and had desaturation on mild exertion) Review of Systems General: Weakness Respiratory: Shortness of Breath Physical Examination - Vital Signs Temperature: 97.2 F Blood Pressure: 125/64 Pulse: 51 Respirations: 16 Pulse Ox (%): 92 - Studies Laboratory Data (last 24 hrs) 09/17/20 03:50: WBC 11.40 H, Hgb 13.0, Hct 39.5, Plt Count 235 09/17/20 03:50: Sodium 143, Potassium 4.3, BUN 17, Creatinine 0.50 L, Glucose 142 H, Magnesium 2.8 H, Total Bilirubin 0.5, AST 70 H, ALT 97 H, Alkaline Phosphatase 73 Medications List Reviewed: Yes Assessment & Plan - Problems (Diagnosis) (1) Pneumonia due to COVID-19 virus Current Visit: Yes Status: Acute Plan: Patient is improving recommend discharge home tomorrow on prednisone 20 b.i.d. for a week and then 10 b.i.d. continue with full-dose anticoagulation and a oxygen
[2020-09-17] MEDS: IVERMECTIN 3 MG TABLET PO SCH (12:16)
[2020-09-17] MEDS: FLUCONAZOLE 200mg IVPB 200 MG/100 ML BAG IV SCH (16:53)
[2020-09-18 06:51] LABS: Absolute Lymphocytes (CBC) 0.8 K/uL (0.7-4.9); Basophils % 0.3 % (0-1.3); Hematocrit 39.8 % (36.0-45.0); Lymphocytes % 6.1 % (15.3-44.8); MPV 10.4 fL (7.6-11.3); RBC Red Blood Cell Count 4.54 M/uL (3.86-4.86)
[2020-09-18 08:06] LABS: ALT/SGPT 82 U/L (12-78); AST/SGOT 32 U/L (15-37); Albumin 2.8 g/dL (3.4-5.0); Alkaline Phosphatase 69 U/L (45-117); BUN Blood Urea Nitrogen 16 mg/dL (7-18); Bicarbonate 29 mmol/L (21-32); Bilirubin Direct 0.2 mg/dL (0-0.2); Bilirubin Total 0.5 mg/dL (0.2-1.0); C-Reactive Protein 4.57 mg/L (<3.00); Ferritin 402.8 ng/mL (8-388); Glucose Level 149 mg/dL (74-106); Magnesium 2.7 mg/dL (1.8-2.4); Potassium 4.5 mmol/L (3.5-5.1); Protein, Total 6.8 g/dL (6.4-8.2); Sodium Level 142 mmol/L (136-145)
[2020-09-18] MEDS: APIXABAN 5 MG TABLET PO SCH (09:00)
[2020-09-18] MEDS: NYSTATIN 500,000 UNIT/5 ML UDC PO SCH ×2 (09:00→13:00)
[2020-09-18] MEDS: METHYLPREDNISOLONE 125 MG INJ IV SCH (09:00)
[2020-09-18] MEDS: FAMOTIDINE 20 MG/2 ML VIAL IV SCH (09:00)
[2020-09-18 10:11] VITALS: O2SAT 93
[2020-09-18] MEDS: Remdesivir 100 MG in NA CHLORIDE 0.9% 250 ML IV SCH (10:56)
--- NOTE | 2020-09-18 12:24 | P.DS ---
Admission Date: 09/13/20 Discharge Date: 09/18/20 Disposition: ROUTINE DISCHARGE Discharge Condition: FAIR Reason for Admission: COVID-19 pneumonia - Problems (1) Acute respiratory disease due to COVID-19 virus Current Visit: Yes Status: Acute (2) Pneumonia due to COVID-19 virus Current Visit: Yes Status: Acute Brief History of Present Illness: Reason for admission: COVID-19 pneumonia History of Present Illness: Patient is a 55-year-old female who came to the hospital from [place], [place]. They did not have any COVID beds so arrangements were made to transfer patient to our facility. Patient was hypoxic requiring 4 L of oxygen. Patient has multiple comorbidities including morbid obesity and dyslipidemia. She has been told she is prediabetic and she is has some blood pressure issues as well. At this time she will be admitted to our hospital for further evaluation. I did talk to her about the use of Remdesivir as well as plasma. She is will willing to except both. Will go ahead and get orders started-await for approval by the committee at [facility] that approves these medications. Allergies Hospital Course: PATIENT WAS ADMITTED FOR COUGH WITH PNEUMONIA. She received covalescent plasma as well as Remdesivir. Her last dose was today. Her O2 need has been weaning down but requiring supplemental 2 L nasal cannula O2. She will be discharged home today with home O2. She will follow with Pulmonary who evaluated her inpatient-Dr. Bocanegra in the next 1 week Vital Signs/Physical Exam: Temp Pulse Resp BP Pulse Ox 97.7 F 55 24 H 128/64 94 09/18/20 08:00 09/18/20 08:00 09/18/20 08:00 09/18/20 08:00 09/18/20 08:00 General: Alert, In no apparent distress, Oriented x3, Cooperative, Other (still on NC 02 ) HEENT: Atraumatic, Normocephalic, PERRLA Neck: Supple, 2+ carotid pulse no bruit, JVD not distended Respiratory: Clear to auscultation bilaterally, Normal air movement Cardiovascular: No edema, Normal pulses, Regular rate/rhythm, Normal S1 S2 Gastrointestinal: Normal bowel sounds, Soft and benign, Non-distended Neurological: Normal gait, Normal strength at 5/5 x4 extr, Sensation intact Laboratory Data at Discharge: WBC 12.60 K/uL (4.3-10.9) H 09/18/20 05:58 Hgb 13.0 g/dL (12.0-15.0) 09/18/20 05:58 Hct 39.8 % (36.0-45.0) 09/18/20 05:58 Plt Count 264 K/uL (152-406) 09/18/20 05:58 Sodium 142 mmol/L (136-145) 09/18/20 05:58 Potassium 4.5 mmol/L (3.5-5.1) 09/18/20 05:58 BUN 16 mg/dL (7-18) 09/18/20 05:58 Creatinine 0.50 mg/dL (0.55-1.3) L 09/18/20 05:58 Glucose 149 mg/dL (74-106) H 09/18/20 05:58 Phosphorus 3.1 mg/dL (2.5-4.9) 09/14/20 03:27 Magnesium 2.7 mg/dL (1.8-2.4) H 09/18/20 05:58 Total Bilirubin 0.5 mg/dL (0.2-1.0) 09/18/20 05:58 AST 32 U/L (15-37) 09/18/20 05:58 ALT 82 U/L (12-78) H 09/18/20 05:58 Alkaline Phosphatase 69 U/L (45-117) 09/18/20 05:58 Triglycerides 70 mg/dL (<150) 09/14/20 03:27 Cholesterol 78 mg/dL (<200) 09/14/20 03:27 HDL Cholesterol 34 mg/dL (40-60) L 09/14/20 03:27 Cholesterol/HDL Ratio 2.29 09/14/20 03:27 Home Medications: Ibuprofen 1 tab PO TID PRN 09/13/20 Dexamethasone [Decadron] 6 mg PO DAILY 7 Days #5 tablet 09/18/20 New Medications: Dexamethasone [Decadron] 6 mg PO DAILY 7 Days #5 tablet Diet: Regular Activity: Ad juliann Followup: Jono Pereira MD [ACTIVE - CAN ADMIT] - Time spent managing pt's care (in minutes): 35
[2020-09-18 16:39] VITALS: BP 122/60; TEMP 97.4
== END 2020-09-18 16:59 | disposition home or self-care (01) | DRG 177 ==
LOC: EDSTATUS 13:08 → 4TH 15:37
PROVIDERS: ADMIT Hospitalist; ATTEND Internal Medicine
PROC: XW033E5 Introduction of Remdesivir Anti-infective into Peripheral Vein, Percutaneous Approach, New Technology Group 5 (ICD-10-PCS; principal; 2020-09-14)
PROC: 5A09557 Assistance with Respiratory Ventilation, Greater than 96 Consecutive Hours, Continuous Positive Airway Pressure (ICD-10-PCS; 2020-09-14)
PROC: XW13325 Transfusion of Convalescent Plasma (Nonautologous) into Peripheral Vein, Percutaneous Approach, New Technology Group 5 (ICD-10-PCS; 2020-09-14)
DX: U07.1 COVID-19 (principal); J12.82 Pneumonia due to coronavirus disease 2019; Z68.41 Body mass index [BMI] 40.0-44.9, adult; E66.01 Morbid (severe) obesity due to excess calories; E78.5 Hyperlipidemia, unspecified; J06.9 Acute upper respiratory infection, unspecified; B37.9 Candidiasis, unspecified; R13.10 Dysphagia, unspecified; Z79.899 Other long term (current) drug therapy; Z90.49 Acquired absence of other specified parts of digestive tract
CPT/HCPCS: 36415; 36430; 71045; 80053; 80061; 80076; 82728; 83605; 83735; 83880; 84100; 84145; 85025; 86140; 86900; 86901; 86927; 94010; 94660; 94760; J0456; J0696; J1450; J2920; J2930; J7050